=== PATIENT | female | born 1955 | race Caucasian/White ===

== ENCOUNTER 2023-11-09 13:37 | Outpatient (OUT) | payer MEDICARE, BC, OTHER, SELFPAY ==
--- NOTE | 2023-11-09 | MM_ITS ---
Patient Name: ALVARO WARNER MR#: [id number] : 1955 Exam Date: 11/09/2023 Ordering Doctor: DR RAS TORRES M.D. RADIOLOGY REPORT PROCEDURE: MM TOMOSYNTHESIS SCREENING BI COMPARISON: MG MAMM SCREEN 3D CAROL CAD, 01/29/2021. MG MAMM SCREEN CAROL W CAD, 03/06/2019. MG MAMM SCREEN CAROL W CAD, 11/15/2017. MG MAMM CAROL SCRN W CAD DIG, 03/19/2014. INDICATIONS: Carol Screening Mamm Calculator Name [facility] Breast Cancer Risk Assessment Tool 5 Year Breast Cancer Risk 1.50% Lifetime Breast Cancer Risk 5.40% Personal Breast Cancer No Personal Ovarian Cancer No Treatments Removal of tumor Family Cancers None LOCATION: [facility] BREAST COMPOSITION: There are scattered areas of fibroglandular density. FINDINGS: DIAGNOSTIC CATEGORY 1--NEGATIVE. RIGHT BREAST: No significant suspicious finding. No significant change has occurred. LEFT BREAST: No significant suspicious finding. No significant change has occurred. RECOMMENDATIONS: ROUTINE MAMMOGRAM AND CLINICAL EVALUATION IN 12 MONTHS. PLEASE NOTE: A NORMAL MAMMOGRAM DOES NOT EXCLUDE THE POSSIBILITY OF BREAST CANCER. A CLINICALLY SUSPICIOUS PALPABLE LUMP SHOULD BE BIOPSIED. Dictated by: Erickson Valencia M.D. on 11/10/2023 at 15:33 Approved by: Erickson Valencia M.D. on 11/10/2023 at 15:38
== END 2023-11-09 13:38 | disposition home or self-care (01) ==
LOC: MAMMO 13:44
PROVIDERS: PCP Internal Medicine; Visit Provider Internal Medicine
DX: E28.39 Other primary ovarian failure (principal); Z12.31 Encounter for screening mammogram for malignant neoplasm of breast
CPT/HCPCS: 77063; 77067

== ENCOUNTER 2023-11-14 12:45 | Outpatient (OUT) | payer MEDICARE, BC, OTHER, SELFPAY ==
--- NOTE | 2023-11-14 12:53 | XR_ITS ---
[address] [address] Patient Name: ALVARO WARNER MRN: [id number] date: 1955 Sex: F Assigned Patient Location: [facility] Current Patient Location: Accession/Order Number: [id number] Exam Date: 11/14/2023 13:00 Report Date: 11/15/2023 06:18 At the request of: RAS TORRES Procedure: XR DEXA axial skeleton EXAMINATION: XR DEXA axial skeleton HISTORY: Estrogen Deficiency E28.39 COMPARISON: DEXA bone densitometry 03/06/2019 TECHNIQUE: Dual-energy X-ray absorptiometry (DXA) was performed. FINDINGS: SPINE ANALYSIS: Average bone mineral density is 1.114 g/cm2. T-score (standard deviation relative to young adult mean): -0.7 . +8.4% change since prior study. HIP ANALYSIS: Lowest bone mineral density is within the left femoral neck, 0.765 g/cm2. T-score (standard deviation relative to young adult mean): -2.0 . -5.3% change since prior study. XR/XR DEXA axial skeleton IMPRESSION: World Health Organization Classification: Osteopenia - Moderate Fracture Risk FRAX: Cannot be calculated. Pharmacologic treatment recommendations * No uniform recommendation applies to all patients. Management plans must be individualized. * Consider initiating pharmacologic treatment in postmenopausal women and men >= 50 years of age who have the following: Primary fracture prevention: * T-score <= - 2.5 at the femoral neck, total hip, lumbar spine, 33% radius (some uncertainty with existing data) by DXA. * Low bone mass (osteopenia: T-score between - 1.0 and - 2.5) at the femoral neck or total hip by DXA with a 10-year hip fracture risk >= 3% or a 10-year major osteoporosis-related fracture risk >= 20% (i.e., clinical vertebral, hip, forearm, or proximal humerus) based on the [place]-adapted FRAXregistered model. Secondary fracture prevention: * Fracture of the hip or vertebra regardless of BMD [4, 5]. * Fracture of proximal humerus, pelvis, or distal forearm in persons with low bone mass (osteopenia: T-score between - 1.0 and - 2.5). The decision to treat should be individualized in persons with a fracture of the proximal humerus, pelvis, or distal forearm who do not have osteopenia or low BMD [12, 13]. Lucius MS, Mahin SL, Sudheer KL, Catherine EM, Ita KG, AJ, Kevin ES. The clinician's guide to prevention and treatment of osteoporosis. Osteoporos Int. 2021;33(10):9283-0170. doi: 10.1007/m20002-029-07852-v. Epub 2021Aug 20. Erratum in: Osteoporos Int. 2021Nov 19;: PMID: [id number]; PMCID: [id number]. Electronically authenticated by: RETA LANDRY Date: 11/15/2023 06:18
== END 2023-11-14 12:46 | disposition home or self-care (01) ==
LOC: RAD 12:46
PROVIDERS: PCP Internal Medicine; Visit Provider Internal Medicine
DX: E28.39 Other primary ovarian failure (principal); M85.80 Other specified disorders of bone density and structure, unspecified site
CPT/HCPCS: 77080